=== PATIENT | male | born 1940 | race Caucasian/White ===

== ENCOUNTER 2018-06-24 22:41 | Emergency (ER) | payer MEDICARE ==
[~2018-06-24] VITALS: Ht 170.2 cm; Wt 80.0 kg
[~2018-06-24 22:41] MED LIST: ADV50250 IH; ATOR40TA PO; CARV3.12 PO; CEPH250T PO; COU5T PO; FURO-150 PO; POTA10TA19 PO; SPIIN INH
[2018-06-24] MEDS ORDERED: FURO-149 PO (23:03)
[2018-06-24] MEDS ORDERED: FURO-150 PO (23:03)
[2018-06-24] MEDS ORDERED: CITA20TA28 PO (23:04)
[2018-06-24] MEDS ORDERED: ASPI-1265 PO (23:04)
[2018-06-24 23:18] LABS: BASOPHILS % (AUTO) 0.5 % (0-1); EOSINOPHILS # (AUTO) 0.1 X10'3 (0-0.9); EOSINOPHILS % (AUTO) 0.9 % (0-6); LYMPHOCYTES # (AUTO) 1.4 X10'3 (1.1-4.8); LYMPHOCYTES % (AUTO) 16.4 % (21-51); MEAN CORPUSCULAR HEMOGLOBIN 31.1 PG (27.0-31.0); MEAN CORPUSCULAR HGB CONC 32.4 g/dL (33.0-36.5); MEAN CORPUSCULAR VOLUME 95.8 FL (78-98); MEAN PLATELET VOLUME 9.6 FL (7.4-10.4); MONOCYTES # (AUTO) 0.8 X10'3 (0-0.9); MONOCYTES % (AUTO) 9.2 % (2-12); NEUTROPHILS # (AUTO) 6.3 X10'3 (1.8-7.7); PLATELET COUNT 108 X10'3 (140-440); RED BLOOD COUNT 4.18 X10'6 (4.70-6.10); RED CELL DISTRIBUTION WIDTH 14.7 % (11.5-14.5); WHITE BLOOD COUNT 8.6 X10'3 (4.5-11.0)
--- NOTE | 2018-06-24 23:24 | NUR ---
PT ARRIVES ALS WITH C/O SOB SINCE 0800 TODAY. HAS BEEN TRYING TO MANAGE COPD EXAC AT HOME WITH INHALERS WITHOUT IMPROVMENT. PT ON 15L PER MASK WITH NEB TREATMENT IN PROCESS, TRIPODING, AND VERY DECREASED THROUGHOUT.
[2018-06-24 23:27] LABS: INR 1.1 INR; PARTIAL THROMBOPLASTIN TIME 31 SECONDS (22-32)
[2018-06-24 23:28] LABS: ALANINE AMINOTRANSFERASE 28 U/L (12-78); ALBUMIN 3.8 G/DL (3.4-5.0); ALKALINE PHOSPHATASE 114 IU/L (46-116); ANION GAP 5 (8-16); ASPARTATE AMINO TRANSFERASE 20 U/L (10-37); BILIRUBIN,TOTAL 0.8 MG/DL (0.1-1.0); BLOOD UREA NITROGEN 18 MG/DL (7-18); BUN/CREATININE RATIO 18.6 (5.4-32.0); CHLORIDE 99 MMOL/L (99-107); CREATININE 0.97 MG/DL (0.60-1.10); GLUCOSE 152 MG/DL (70-104); SODIUM 138 MMOL/L (135-145); TOTAL CARBON DIOXIDE 33.9 MMOL/L (24-32); TOTAL PROTEIN 7.8 G/DL (6.4-8.2); eGFR 75 ML/MIN
[2018-06-24] MEDS ORDERED: methylPREDNISolone sod succ 125mg/2ml vial IV ONE (23:30)
[2018-06-24] MEDS ORDERED: iohexol 350MG/ML 100ml bottle IV ONE (23:32)
[2018-06-24] MEDS ORDERED: ipratropium/albuterol 3ml nebule NEB ONE (23:35)
[2018-06-25 01:02] VITALS: BP 132/56
[2018-06-25] MEDS ORDERED: AZIT250T PO (01:40)
[2018-06-25] MEDS ORDERED: PRED10TA PO (01:40)
== END 2018-06-25 02:03 | disposition home or self-care (01) ==
LOC: ER 22:42
DX: J44.1 Chronic obstructive pulmonary disease with (acute) exacerbation (principal); M19.90 Unspecified osteoarthritis, unspecified site; Z98.890 Other specified postprocedural states; Z79.82 Long term (current) use of aspirin; Z79.899 Other long term (current) drug therapy
CPT/HCPCS: 36415; 71045; 71275; 80053; 84484; 85025; 85610; 85730; 93005; 94640; 94760; 96374; 99284; J2930; Q9967

== ENCOUNTER 2018-10-03 10:07 | Inpatient (IN) | payer MEDICARE ==
[~2018-10-03] VITALS: Ht 170.2 cm; Wt 80.0 kg
[~2018-10-03 10:07] MED LIST changes: +ASPI-1265 PO; -CARV3.12 PO; -CEPH250T PO; +CITA20TA28 PO; -COU5T PO; +FURO-149 PO; -POTA10TA19 PO; +PRED10TA PO
[2018-10-03 11:25] LABS: ABG HCO3 30.4 mmol/L (22.0-26.0); ABG OXYGEN SATURATION 97.4 % (95-98); ABG PCO2 (T) 53.3 mmHg (35.0-45.0); ABG PH (T) 7.374 (7.350-7.450); ABG PO2 (T) 103.3 mmHg (83-108); FLOW 4 L/min; FMetHb 0.1 % (0.3-1.12); FO2Hb 96.3 % (94-100); TOTAL HEMOGLOBIN 13.4 G/dl (14.0-17.9)
--- NOTE | 2018-10-03 11:52 | NUR ---
Hayley morales in [facility] - 10/03/18 at 1152 by KIRA PT STATES HE CANNOT URINATE AND REFUSED CATHETER
[2018-10-03 11:57] LABS: BASOPHILS % (AUTO) 0.5 % (0-1); EOSINOPHILS # (AUTO) 0.1 X10'3 (0-0.9); EOSINOPHILS % (AUTO) 1.9 % (0-6); HEMATOCRIT 39.7 % (42.0-52.0); HEMOGLOBIN 12.7 g/dl (14.0-17.9); LYMPHOCYTES # (AUTO) 1.1 X10'3 (1.1-4.8); LYMPHOCYTES % (AUTO) 17.2 % (21-51); MEAN CORPUSCULAR HEMOGLOBIN 30.2 PG (27.0-31.0); MEAN CORPUSCULAR VOLUME 94.4 FL (78-98); MEAN PLATELET VOLUME 9.5 FL (7.4-10.4); MONOCYTES # (AUTO) 0.5 X10'3 (0-0.9); NEUTROPHILS # (AUTO) 4.6 X10'3 (1.8-7.7); NEUTROPHILS % (AUTO) 72.4 % (42-75); PLATELET COUNT 102 X10'3 (140-440); RED CELL DISTRIBUTION WIDTH 14.9 % (11.5-14.5); WHITE BLOOD COUNT 6.4 X10'3 (4.5-11.0)
[2018-10-03 11:59] LABS: ALANINE AMINOTRANSFERASE 44 U/L (12-78); ALBUMIN 3.2 G/DL (3.4-5.0); ALBUMIN/GLOBULIN RATIO 0.8 (1.1-1.5); ALKALINE PHOSPHATASE 107 IU/L (46-116); ANION GAP 6 (8-16); ASPARTATE AMINO TRANSFERASE 21 U/L (10-37); BILIRUBIN,TOTAL 0.8 MG/DL (0.1-1.0); BLOOD UREA NITROGEN 18 MG/DL (7-18); BUN/CREATININE RATIO 18.4 (5.4-32.0); CALCIUM 8.7 MG/DL (8.5-10.1); CHLORIDE 105 MMOL/L (99-107); CREATININE 0.98 MG/DL (0.60-1.10); GLUCOSE 131 MG/DL (70-104); POTASSIUM 4.4 MMOL/L (3.5-5.1); SODIUM 142 MMOL/L (135-145); TOTAL CARBON DIOXIDE 30.9 MMOL/L (24-32); TOTAL PROTEIN 7.1 G/DL (6.4-8.2); eGFR 74 ML/MIN
[2018-10-03 12:02] LABS: TROPONIN I 0.05 NG/ML (0.0-0.05)
[2018-10-03] MEDS ORDERED: normal saline 1000ml 1,000 ML IV SCH (12:26)
[2018-10-03] MEDS ORDERED: potassium CL 10mEq/100ml bag 100 ML IV PRN ×2 (12:30)
[2018-10-03] MEDS ORDERED: magnesium Cl slow-release 64mg tablet PO PRN (12:30)
[2018-10-03] MEDS ORDERED: HYDROcodone/acetaminophen 10/325mg tab PO PRN (12:30)
[2018-10-03] MEDS ORDERED: magnesium 2GM in 50ml NS 50 ML IV PRN (12:30)
[2018-10-03] MEDS ORDERED: methylPREDNISolone sod succ 125mg/2ml vial IV ONE (12:30)
[2018-10-03] MEDS ORDERED: ondansetron/PF 4mg/2ml inj IV PRN (12:30)
[2018-10-03] MEDS ORDERED: acetaminophen 325mg tablet PO PRN ×2 (12:30)
[2018-10-03] MEDS ORDERED: potassium Cl 20 mEq SR tablet PO PRN ×2 (12:30)
[2018-10-03] MEDS ORDERED: bisacodyl 10mg suppository rectal RC PRN (12:30)
[2018-10-03] MEDS ORDERED: acetaminophen 650mg rectal suppository RC PRN (12:30)
[2018-10-03] MEDS ORDERED: magnesium 4gm in 100ml NS 100 ML IV PRN (12:30)
[2018-10-03] MEDS ORDERED: magnesium hydroxide 30ml (MOM) UD suspension PO PRN (12:30)
[2018-10-03] MEDS ORDERED: diphenhydrAMINE 25mg capsule PO PRN (12:30)
[2018-10-03] MEDS ORDERED: HYDROcodone/acetaminophen 5mg/325mg tablet PO PRN (12:30)
[2018-10-03] MEDS ORDERED: mag hydrox/Alum hydrox/simeth 30ml oral suspension PO PRN (12:30)
[2018-10-03] MEDS ORDERED: diphenhydrAMINE 50 mg/ml inj IV PRN (12:30)
[2018-10-03] MEDS: K and/or MAG REPLACEMENT MC SCH (12:30)
[2018-10-03] MEDS ORDERED: morphine 2 MG/ML inj. syringe IV PRN ×2 (12:30)
[2018-10-03] MEDS ORDERED: ATOR20TA PO (12:39)
[2018-10-03] MEDS ORDERED: FURO-150 PO (12:39)
[2018-10-03] MEDS ORDERED: POTA8CAP20 PO (12:40)
[2018-10-03] MEDS ORDERED: LORazepam 2 mg/ml vial IV ONE (13:00)
[2018-10-03 13:26] LABS: HEMOGLOBIN A1C 5.9 % (4.5-6.2)
--- NOTE | 2018-10-03 14:18 | NUR ---
Patient in room PCU 3016. I have received report from Octavio RN, ED, and had the opportunity to ask questions and assume patient care.
[2018-10-03] MEDS: levoFLOXACIN-Levaquin 500mg/D5 100 ML IV SCH (14:31)
--- NOTE | 2018-10-03 14:54 | NUR ---
PAGER ID: [phone] MESSAGE: Re: Uche Kincaid, Room: 301. RT was unsure concerning bipap orders. Last ABG: PH 7.37, CO2 53.3, HCO3 30.4 and O2 103.3 -[facility] # [id number] Dr. Proctor paged concerning Pt's bipap orders. Unclear for RT
[2018-10-03 15:00] VITALS: BP 143/59
--- NOTE | 2018-10-03 15:00 | NUR ---
Pt arrived to unit. Pt oriented to room, call light and bed controls. Vitals stable.
[2018-10-03] MEDS: methylPREDNISolone sod succ 125mg/2ml vial IV SCH ×2 (15:12→20:11)
[2018-10-03] MEDS: ipratropium/albuterol 3ml nebule NEB SCH ×3 (16:42→23:00)
--- NOTE | 2018-10-03 18:08 | NUR ---
Patient in room PCU 3016. I have received report from sanjay MCMANUS and had the opportunity to ask questions and assume patient care.
--- NOTE | 2018-10-03 18:20 | NUR ---
pt refused lasix and heparin after hearing the benefits of the meds
--- NOTE | 2018-10-03 18:25 | NUR ---
Problems reprioritized. Patient report given, questions answered & plan of care reviewed with Suly MCMANUS.
[2018-10-03 19:00] VITALS: BP 107/44
--- NOTE | 2018-10-03 19:00 | NUR ---
pt repeated says he wanted to go home and said "you guys cant keep me here." His at bedside said the pt needs to stay at the hospital and need helps. She said that this is not his normal self
[2018-10-03] MEDS: budesonide 0.5mg/2ml UD nebule IH SCH (19:58)
[2018-10-03 20:00] VITALS: BP_SYST 134; BP_SYST 140; BP_SYST 150; BP_DIAS 34; BP_DIAS 54; BP_DIAS 55
[2018-10-03] MEDS: furosemide 40mg/4ml inj IV SCH (20:00)
[2018-10-03] MEDS: heparin, porcine 5000 units/ml vial SQ SCH (20:00)
[2018-10-03] MEDS ORDERED: non-formulary drug (Fluticasone/Salmeterol* (Advair 250-50 Diskus*) 1 PUFF) IH SCH (20:00)
[2018-10-03 20:19] LABS: CLARITY,URINE CLEAR (Clear); COLOR,URINE YELLOW (Yellow); GLUCOSE, URINE NEGATIVE (Neg); KETONES,URINE NEGATIVE (Neg); LEUKOCYTE ESTERASE ,URINE NEGATIVE (Neg); NITRITES, URINE NEGATIVE (Neg); OCCULT BLOOD,URINE NEGATIVE (Neg); PH,URINE 5.5 (4.8-8.0); PROTEIN,URINE TRACE mg/dl (Neg)
[2018-10-03 20:22] LABS: UA COLLECTION TYPE CLN CATCH MIDSTREAM
[2018-10-03 20:35] LABS: MUCUS STRANDS MANY /LPF (Neg); SQUAMOUS EPITHELIAL CELL,UR FEW /LPF (FEW)
[2018-10-03 20:37] LABS: HYALINE CASTS 0-3 /LPF (NEGATIVE)
[2018-10-03 20:39] LABS: BACTERIA,URINE FEW /HPF (Neg); RBC,URINE 0-2 /HPF (0-2); WBC,URINE 0-4 /HPF (0-4)
[2018-10-03] MEDS ORDERED: temazepam 15mg capsule PO PRN (21:00)
--- NOTE | 2018-10-03 21:45 | NUR ---
pt took out IV and refused to have another IV placing even after explaining that he wont be able get his IV medication for his breathing
[2018-10-03 22:00] VITALS: BP 140/34
--- NOTE | 2018-10-03 22:27 | NUR ---
contacted Dr. Chaudhry about pt IV, got an order of PO meds prednisone and zyprexa
[2018-10-03] MEDS ORDERED: OLANZapine 2.5MG tablet PO ONE (22:30)
[2018-10-03] MEDS ORDERED: OLANZAPINE 5 MG TABLET PO ONE (22:55)
--- NOTE | 2018-10-04 02:00 | NUR ---
after multiple unsuccessful attemtps to get pt temperature, pt refused to let the staff get his temperature, and he said " I have enough of this, I want to sleep."
[2018-10-04 03:00] VITALS: BP 141/52
[2018-10-04] MEDS: ipratropium/albuterol 3ml nebule NEB SCH ×2 (03:00→07:00)
--- NOTE | 2018-10-04 04:18 | NUR ---
Pt refused to take Zyprexa even when it explained the benefit of medication. Will leave the order in EMAR if pt wants to have it later
[2018-10-04 05:22] LABS: MEAN CORPUSCULAR VOLUME 94.6 FL (78-98); WHITE BLOOD COUNT 4.2 X10'3 (4.5-11.0)
[2018-10-04 05:24] LABS: BASOPHILS % (AUTO) 0.3 % (0-1); EOSINOPHILS % (AUTO) 0.1 % (0-6); HEMATOCRIT 39.1 % (42.0-52.0); HEMOGLOBIN 12.7 g/dl (14.0-17.9); LYMPHOCYTES # (AUTO) 0.4 X10'3 (1.1-4.8); LYMPHOCYTES % (AUTO) 8.3 % (21-51); MEAN CORPUSCULAR HEMOGLOBIN 30.6 PG (27.0-31.0); MEAN CORPUSCULAR HGB CONC 32.4 g/dL (33.0-36.5); MEAN PLATELET VOLUME 9.3 FL (7.4-10.4); MONOCYTES # (AUTO) 0.1 X10'3 (0-0.9); MONOCYTES % (AUTO) 2.6 % (2-12); NEUTROPHILS # (AUTO) 3.8 X10'3 (1.8-7.7); NEUTROPHILS % (AUTO) 88.7 % (42-75); PLATELET COUNT 88 X10'3 (140-440); RED BLOOD COUNT 4.14 X10'6 (4.70-6.10); RED CELL DISTRIBUTION WIDTH 14.9 % (11.5-14.5)
[2018-10-04 05:36] LABS: ALANINE AMINOTRANSFERASE 38 U/L (12-78); ALBUMIN 2.9 G/DL (3.4-5.0); ALBUMIN/GLOBULIN RATIO 0.7 (1.1-1.5); ALKALINE PHOSPHATASE 92 IU/L (46-116); ANION GAP 3 (8-16); ASPARTATE AMINO TRANSFERASE 23 U/L (10-37); BILIRUBIN,TOTAL 0.7 MG/DL (0.1-1.0); BLOOD UREA NITROGEN 16 MG/DL (7-18); BUN/CREATININE RATIO 17.4 (5.4-32.0); CALCIUM 8.5 MG/DL (8.5-10.1); CHLORIDE 105 MMOL/L (99-107); CHOL/HDL RATIO 3.7 (0.00-4.99); CHOLESTEROL 158 MG/DL (0-200); CREATININE 0.92 MG/DL (0.60-1.10); GLUCOSE 145 MG/DL (70-104); HDL CHOLESTEROL 43 MG/DL (35-60); LDL CHOLESTEROL 101 MG/DL (50-100); MAGNESIUM 2.1 MG/DL (1.5-2.4); PHOSPHORUS 3.6 MG/DL (2.3-4.5); POTASSIUM 5.4 MMOL/L (3.5-5.1); SODIUM 141 MMOL/L (135-145); TOTAL CARBON DIOXIDE 32.7 MMOL/L (24-32); TOTAL PROTEIN 6.8 G/DL (6.4-8.2); TRIGLYCERIDES 38 MG/DL (20-135); eGFR 80 ML/MIN
[2018-10-04 06:00] VITALS: BP 122/46
--- NOTE | 2018-10-04 06:10 | NUR ---
Patient in room PCU 3016. I have received report from Suly MCMANUS and had the opportunity to ask questions and assume patient care.
--- NOTE | 2018-10-04 06:10 | NUR ---
Patient in room PCU 3016. I have received report from Suly MCMANUS and had the opportunity to ask questions and assume patient care.
--- NOTE | 2018-10-04 06:12 | NUR ---
Problems reprioritized. Patient report given, questions answered & plan of care reviewed with Sudarshan MCMANUS.
[2018-10-04] MEDS ORDERED: albuterol 2.5 MG/3 ML nebule NEB SCH (07:00)
[2018-10-04] MEDS ORDERED: ipratropium 0.5 MG/2.5ML nebule IH SCH (07:00)
--- NOTE | 2018-10-04 07:00 | NUR ---
Pt removed tele-box and refuses to have it reattached, stating that he "does not want it", even after explaining the benefits of telemetry monitoring. Talked with Pt about starting a new IV and he refused multiple times saying he doesn't need it. explained to Pt the benafit of having an IV, plus he has IV ABX and lasix due but still he refuses it. Pt refused Nasal Canula this morning but after explaining benefits he put NC back on, 3L.
[2018-10-04] MEDS: furosemide 40mg/4ml inj IV SCH (08:00)
[2018-10-04] MEDS ORDERED: citalopram 20mg tablet PO SCH (08:00)
[2018-10-04] MEDS ORDERED: aspirin 81mg tab.chew PO SCH (08:00)
[2018-10-04] MEDS: K and/or MAG REPLACEMENT MC SCH (08:00)
[2018-10-04] MEDS ORDERED: atorvastatin 20mg tablet PO SCH (08:00)
[2018-10-04] MEDS: heparin, porcine 5000 units/ml vial SQ SCH (08:00)
[2018-10-04] MEDS: levoFLOXACIN-Levaquin 500mg/D5 100 ML IV SCH (08:00)
[2018-10-04] MEDS ORDERED: non-formulary drug (Tiotropium Bromide (SPIRIVA inhaler) 1 CAP) INH SCH (08:00)
[2018-10-04] MEDS ORDERED: predniSONE 20 mg tablet PO SCH (08:00)
--- NOTE | 2018-10-04 08:37 | NUR ---
PAGER ID: [phone] MESSAGE: RE: Uche Kincaid. Room: 301. Pt removed IV last night and refuses to have new one started. Pt refuses to wear Tele box. Pt refusing all morning meds. Pt also has morning potassium of 5.4. -[facility] #[id number] Dr. Esthela fairwekirsten concerning Pt's non-compliance and morning potassium of 5.4
[2018-10-04] MEDS: budesonide 0.5mg/2ml UD nebule IH SCH (09:00)
[2018-10-04] MEDS ORDERED: pneumococcal 23-VAL P-sac vacc 25 mcg/0.5ml vial IMVAC ONE (09:00)
--- NOTE | 2018-10-04 09:00 | NUR ---
I agree with all of Fabiola MCMANUS, orientee, charting
--- NOTE | 2018-10-04 09:12 | NUR ---
PAGER ID: [phone] MESSAGE: [id number]: Uche Kincaid: Pt has arrived and will be leaving AMA, noncompliant with care and beginning to become agitated, refused Scheduled medication x2 attempts, Pt removed IV and tele monitor. Thanks Fabiola [phone]
--- NOTE | 2018-10-04 09:23 | NUR ---
Patient is noncompliant with care and is becoming agitated stating he does not need to be here, Pt is alert and oriented. Patient has left AMA @ 0920 aware of consequences and signed AMA form, Dr. Proctor was notified and aware, pt was wheeled down to lobby with hospital staff and transported home with in private vehicle. all belongings taken with pt. Addendum: 10/04/18 at 0944 by Fabiola Soliman RN Patient is noncompliant with care and is becoming agitated stating he does not need to be here, Pt is alert and oriented. Patient has left AMA @ 0920 aware of consequences and signed AMA form, Dr. Proctor was notified and aware, pt was wheeled down to lobby with hospital staff wearing NC with 2.5L Oxygen, vital signs stable, and transported home with in private vehicle with pt own oxygen tank. all belongings taken with pt.
== END 2018-10-04 09:20 | disposition left against medical advice (07) | DRG 193 ==
LOC: ER 10:08 → PCU 3S 14:02 → CMPBEDREQ 19:26
PROVIDERS: ADMIT Family Medicine; ATTEND Family Medicine
DX: J18.9 Pneumonia, unspecified organism (principal); J96.01 Acute respiratory failure with hypoxia; J44.1 Chronic obstructive pulmonary disease with (acute) exacerbation; E87.2 Acidosis; J44.0 Chronic obstructive pulmonary disease with (acute) lower respiratory infection; E78.5 Hyperlipidemia, unspecified; I11.0 Hypertensive heart disease with heart failure; D64.9 Anemia, unspecified; I48.91 Unspecified atrial fibrillation; Z53.21 Procedure and treatment not carried out due to patient leaving prior to being seen by health care provider; I50.9 Heart failure, unspecified; M19.90 Unspecified osteoarthritis, unspecified site; I49.5 Sick sinus syndrome; Z66 Do not resuscitate; Z82.49 Family history of ischemic heart disease and other diseases of the circulatory system; Z87.891 Personal history of nicotine dependence; Z91.19 Patient's noncompliance with other medical treatment and regimen; Z95.0 Presence of cardiac pacemaker; Z99.81 Dependence on supplemental oxygen
CPT/HCPCS: 36415; 36600; 71045; 80053; 80061; 81001; 82140; 82803; 82948; 83036; 83605; 83735; 84100; 84145; 84484; 85018; 85025; 85610; 87040; 87077; 87081; 90732; 93005; 93306; 94640; 94760; 96374; 99285; G0378; J1644; J1940; J1956; J2060; J2930; J7030; J7512

== ENCOUNTER 2018-10-08 10:46 | Emergency (ER) | payer MEDICARE ==
[~2018-10-08] VITALS: Ht 167.6 cm; Wt 81.8 kg
[~2018-10-08 10:46] MED LIST changes: +ATOR20TA PO; -ATOR40TA PO; -FURO-149 PO; +POTA8CAP20 PO; -PRED10TA PO
--- NOTE | 2018-10-08 11:51 | NUR ---
PT MOVED TO OVERFLOW BED 22 VIA W/C WITH O2. DR SUH WAS NOTIFIED OF PT'S O2 SAT OF 8-83% ON 4 LITERS VIA N/C. FAMILY MEMBERS HERE TO SEE PT
[2018-10-08 11:57] LABS: BASOPHILS # (AUTO) 0.1 X10'3 (0-0.2); BASOPHILS % (AUTO) 1.3 % (0-1); EOSINOPHILS # (AUTO) 0.1 X10'3 (0-0.9); EOSINOPHILS % (AUTO) 1.3 % (0-6); HEMATOCRIT 46.4 % (42.0-52.0); LYMPHOCYTES # (AUTO) 1.3 X10'3 (1.1-4.8); LYMPHOCYTES % (AUTO) 15.3 % (21-51); MEAN CORPUSCULAR HEMOGLOBIN 30.4 PG (27.0-31.0); MEAN CORPUSCULAR HGB CONC 32.4 g/dL (33.0-36.5); MEAN PLATELET VOLUME 9.3 FL (7.4-10.4); MONOCYTES # (AUTO) 0.5 X10'3 (0-0.9); MONOCYTES % (AUTO) 5.7 % (2-12); NEUTROPHILS # (AUTO) 6.4 X10'3 (1.8-7.7); NEUTROPHILS % (AUTO) 76.4 % (42-75); PLATELET COUNT 125 X10'3 (140-440); RED BLOOD COUNT 4.94 X10'6 (4.70-6.10); RED CELL DISTRIBUTION WIDTH 14.6 % (11.5-14.5); WHITE BLOOD COUNT 8.4 X10'3 (4.5-11.0)
[2018-10-08 12:01] LABS: ALANINE AMINOTRANSFERASE 47 U/L (12-78); ALBUMIN 3.8 G/DL (3.4-5.0); ALBUMIN/GLOBULIN RATIO 0.9 (1.1-1.5); ALKALINE PHOSPHATASE 121 IU/L (46-116); ANION GAP 10 (8-16); ASPARTATE AMINO TRANSFERASE 28 U/L (10-37); BILIRUBIN,TOTAL 1.5 MG/DL (0.1-1.0); BLOOD UREA NITROGEN 16 MG/DL (7-18); BUN/CREATININE RATIO 14.2 (5.4-32.0); CALCIUM 8.9 MG/DL (8.5-10.1); CHLORIDE 97 MMOL/L (99-107); CREATININE 1.13 MG/DL (0.60-1.10); GLUCOSE 162 MG/DL (70-104); SODIUM 140 MMOL/L (135-145); TOTAL CARBON DIOXIDE 33.5 MMOL/L (24-32); TOTAL PROTEIN 8.2 G/DL (6.4-8.2); eGFR 63 ML/MIN
[2018-10-08 12:10] LABS: ETHANOL < 0.010 GM/DL (0.0-0.010)
[2018-10-08 12:39] LABS: URINE AMPHETAMINE SCREEN NEGATIVE (Neg); URINE BARBITUATE SCREEN NEGATIVE (Neg); URINE BENZODIAZEPINES SCREEN NEGATIVE (Neg); URINE CANNABINOID SCREEN NEGATIVE (Neg); URINE COCAINE SCREEN NEGATIVE (Neg); URINE METHADONE SCREEN NEGATIVE (Neg); URINE OPIATE SCREEN NEGATIVE (Neg); URINE PHENCYCLIDINE SCREEN NEGATIVE (Neg)
[2018-10-08] MEDS ORDERED: haloperidol lactate 5mg/ml inj IM ONE (13:15)
[2018-10-08] MEDS ORDERED: diphenhydrAMINE 50 mg/ml inj IM ONE (13:15)
[2018-10-08] MEDS ORDERED: LORazepam 2 mg/ml vial IM ONE (13:15)
--- NOTE | 2018-10-08 14:00 | NUR ---
Notified Moni in [facility] of pts arrival and need to be evaluated by .
[2018-10-08 14:05] LABS: CLARITY,URINE CLEAR (Clear); COLOR,URINE YELLOW (Yellow); GLUCOSE, URINE NEGATIVE (Neg); KETONES,URINE NEGATIVE (Neg); LEUKOCYTE ESTERASE ,URINE TRACE (Neg); NITRITES, URINE NEGATIVE (Neg); OCCULT BLOOD,URINE NEGATIVE (Neg); PH,URINE 5.5 (4.8-8.0); PROTEIN,URINE NEGATIVE (Neg)
[2018-10-08 14:09] LABS: UA COLLECTION TYPE CLN CATCH MIDSTREAM
[2018-10-08 14:17] LABS: BACTERIA,URINE NONE SEEN /HPF (Neg); RBC,URINE 0-2 /HPF (0-2); SQUAMOUS EPITHELIAL CELL,UR FEW /LPF (FEW); WBC,URINE 0-4 /HPF (0-4)
[2018-10-08 14:18] LABS: MUCUS STRANDS FEW /LPF (Neg)
[2018-10-08 14:19] LABS: HYALINE CASTS 0-3 /LPF (NEGATIVE)
[2018-10-08] MEDS ORDERED: furosemide 40mg tablet PO ONE (14:45)
[2018-10-08] MEDS ORDERED: potassium chloride 8mEq ER tablet PO ONE (14:45)
[2018-10-08] MEDS ORDERED: atorvastatin 20mg tablet PO ONE (14:45)
[2018-10-08] MEDS ORDERED: aspirin 81mg tab.chew PO ONE (14:45)
[2018-10-08] MEDS ORDERED: citalopram 20mg tablet PO ONE (14:45)
[2018-10-08] MEDS: ipratropium/albuterol 3ml nebule NEB SCH ×2 (15:00→20:19)
[2018-10-08] MEDS ORDERED: albuterol 2.5 MG/3 ML nebule NEB SCH (15:00)
[2018-10-08] MEDS ORDERED: ipratropium 0.5 MG/2.5ML nebule IH SCH (15:00)
--- NOTE | 2018-10-08 16:00 | NUR ---
Pt sleeping. Family went back home.
--- NOTE | 2018-10-08 18:30 | NUR ---
Patient sleeping. Per day RN, patient was sedated. Plan to eval later when patient awakens.
--- NOTE | 2018-10-08 19:00 | NUR ---
Patient awoke. Ate dinner, immediately returned to sleep. Patients bed is in view from the nursing station. Q15 minute rounding being done for patient safety.
[2018-10-08] MEDS: budesonide 0.5mg/2ml UD nebule IH SCH (20:18)
--- NOTE | 2018-10-08 23:00 | NUR ---
Patient sleeping on right side. In view from nursing station.
--- NOTE | 2018-10-09 01:56 | NUR ---
Patient awakens, sits up at side of bed. Will not talk with this medical underwriter. He lays down and returns to sleep on his right side. O2 in place still, 2 LPM by N/C.
[2018-10-09] MEDS: ipratropium/albuterol 3ml nebule NEB SCH ×4 (03:00→20:19)
--- NOTE | 2018-10-09 07:00 | NUR ---
Pt sitting at bedside, quietly, without complaints. Pt states he's just waiting until 8 to make a phone call. Pt a little cantankerous, but loosens up when respected and treated nicely.
[2018-10-09] MEDS: budesonide 0.5mg/2ml UD nebule IH SCH ×2 (08:55→20:20)
--- NOTE | 2018-10-09 09:00 | NUR ---
Pt up for breakfast. Pt remains irritable because he wants to leave. Pt has called twice to pick him up. Pt reminded of 5150 process, but does not wish to agree. Pt currently lying in bed.
[2018-10-09] MEDS: atorvastatin 20mg tablet PO SCH (09:11)
[2018-10-09] MEDS: aspirin 81mg tab.chew PO SCH (09:11)
[2018-10-09] MEDS: citalopram 20mg tablet PO SCH (09:12)
[2018-10-09] MEDS: furosemide 40mg tablet PO SCH (09:13)
--- NOTE | 2018-10-09 11:00 | NUR ---
Pt upset r/t not being able to go home. Pt c/o SOB and respiratory was called. Pt O2 sat had gone to 81% for a few minutes, but with relaxation, he climbed again to 93% and after respiratory treatment, he stabilized. Pt was brought a suhail-recliner chair which he got in.
--- NOTE | 2018-10-09 13:00 | NUR ---
Pt visited with his and daughter in law. Pt remained calm and cooperative.
[2018-10-09] MEDS: OLANZapine 5mg rapidly disint. tablet PO PRN (14:50)
--- NOTE | 2018-10-09 15:01 | NUR ---
Pt received a breathing treatment after dipping to 84%. He c/o anxiety and asked for a shot. He was given zydis 5mg per MD order. After breathing treatment, pt was up to 100%.
--- NOTE | 2018-10-09 17:00 | NUR ---
Pt sitting in suhail chair, resting quietly without complaints.
--- NOTE | 2018-10-09 18:30 | NUR ---
Pt sitting up in Alice chair at shift change eating his dinner. PT finished majority of his meal and urinated in his urinal. Pt's water pitcher was filled. [employer] Remover asked pt how he was feeling this evening and pt replied, "fine." [employer] Remover asked if he was having any thoughts of suicide and he replied, "what? no!"
--- NOTE | 2018-10-09 22:02 | NUR ---
Pt refused his HS breathing treatment. PT remains on 4L continous 02 currently sat 97%. He uses his urinal and goes to sleep.
--- NOTE | 2018-10-09 23:30 | NUR ---
Pt resting on R side, 02 at 4L continuous. Respirations WNL, no signs of distress observed.
--- NOTE | 2018-10-10 01:00 | NUR ---
Pt requested a warm blanket which was given to him. Pt laying on L side respirations WNL .
[2018-10-10] MEDS: ipratropium/albuterol 3ml nebule NEB SCH ×6 (03:00→19:55)
--- NOTE | 2018-10-10 03:30 | NUR ---
Pt asleep on R side. Respirations WNL.
[2018-10-10] MEDS ORDERED: dexamethasone 4mg tablet PO ONE (04:25)
--- NOTE | 2018-10-10 04:27 | NUR ---
PT woke up and appeared to have labored breathing, 02 sat 86%, respiratory paged and breathing tx started. Physician consulted and decadron 12 mg PO and ativan 1mg ordered.
[2018-10-10] MEDS: LORazepam 1 MG tablet PO PRN ×3 (04:29→15:59)
--- NOTE | 2018-10-10 06:30 | NUR ---
Patient observed resting comfortably in bed, no distress observed.
[2018-10-10] MEDS: citalopram 20mg tablet PO SCH (08:02)
[2018-10-10] MEDS: atorvastatin 20mg tablet PO SCH (08:02)
[2018-10-10] MEDS: furosemide 40mg tablet PO SCH (08:03)
[2018-10-10] MEDS: aspirin 81mg tab.chew PO SCH (08:03)
[2018-10-10] MEDS: budesonide 0.5mg/2ml UD nebule IH SCH ×2 (09:00→19:55)
[2018-10-10] MEDS: potassium chloride 8mEq ER tablet PO SCH (09:05)
--- NOTE | 2018-10-10 10:30 | NUR ---
Patient resting comfortably, no apparent distress. and daughter came to visit, did not wake patient and will return later.
--- NOTE | 2018-10-10 11:00 | NUR ---
Patient wakes and reports that he is feeling anxious. PO Ativan 1mg administered.
[2018-10-10] MEDS: OLANZapine 5mg rapidly disint. tablet PO PRN (14:00)
--- NOTE | 2018-10-10 14:09 | NUR ---
Patient reports feeling anxious. He states that he is tired of feeling this way. He did not eat his lunch and asks this RN to take it away. He requests Ativan but it is too soon. RN administered Zyprexa as ordered.
--- NOTE | 2018-10-10 14:57 | NUR ---
PT SPO2 94% ON 4L/MIN OXYGEN HEART RATE 77 WHILE SLEEPING, PT WOKEN AND ASKED IF HE WANTED Q 6 HOUR RT TREATMENT AND PT REFUSED, DISCUSSED WITH PT HAVING PULMACORT RT TREATMENT TONIGHT AT 2100 AND PT AGREEABLE TO HAVE THAT RT TREATMENT TONIGHT
--- NOTE | 2018-10-10 18:36 | NUR ---
pt is now in bed after eating dinner, supine rcv 4L via n/c no s/s of distress observed
--- NOTE | 2018-10-10 19:35 | NUR ---
pt is supine in bed, magazine over his face, on 4L nc no s/s of distress obsereved, regular breathing present
--- NOTE | 2018-10-10 20:35 | NUR ---
pt refused breathing treatment, his 02 sat is 93% on 4L, calm no s/s of distress observed
--- NOTE | 2018-10-10 21:36 | NUR ---
pt apperas to be sleeping, supine in bed, eyes closed, regular brathing present
--- NOTE | 2018-10-10 22:40 | NUR ---
pt is quietly snoring, no s/s of distress observed
--- NOTE | 2018-10-10 23:33 | NUR ---
pt appears to be asleep he is on his right side, 4L n/c reqular breathing, no s/s of distress observed
--- NOTE | 2018-10-11 00:40 | NUR ---
pt appears to be asleep, he is laying on his right ride, quietly snoring, no s/s of distrss are observed
--- NOTE | 2018-10-11 01:32 | NUR ---
pt is sleeping, eyes closed, remains on 4L nc, no s/s of distress observed
--- NOTE | 2018-10-11 02:29 | NUR ---
Patient sleeping soundly on his right side with even unlabored breathing.
[2018-10-11] MEDS: ipratropium/albuterol 3ml nebule NEB SCH ×4 (03:00→20:38)
--- NOTE | 2018-10-11 03:11 | NUR ---
pt supine in bed softly snoring, no s/s of distress observed
--- NOTE | 2018-10-11 04:19 | NUR ---
pt is asllep, on 4l nc, supine, unlabored breathing
--- NOTE | 2018-10-11 05:25 | NUR ---
pt is on right side, sleeping, no s/s of distress observed, on 4L n/c regular breathing present
--- NOTE | 2018-10-11 06:00 | NUR ---
pt coopertive with having his vitals taken, remained asleep, no s/s of distress observed
--- NOTE | 2018-10-11 06:30 | NUR ---
Nursing Note: Pt laying in bed on his back, head of bed at 45 degree angle, on 4 L O2 via NC, respirations even and unlabored, no S&S of distress. Will continue to monitor.
--- NOTE | 2018-10-11 07:54 | NUR ---
Nursing Note: Pt refused AM RT treatment. No S&S of distress, pt on 4L O2, RR even and unlabored, no S&S of distress, will continue to monitor.
[2018-10-11] MEDS: aspirin 81mg tab.chew PO SCH (08:10)
[2018-10-11] MEDS: atorvastatin 20mg tablet PO SCH (08:10)
[2018-10-11] MEDS: citalopram 20mg tablet PO SCH (08:10)
[2018-10-11] MEDS: furosemide 40mg tablet PO SCH (08:10)
--- NOTE | 2018-10-11 08:25 | NUR ---
Nursing Note: Notified Dr. Medrano that pt's O2 sats were ranging in the upper 80's. Pt refused AM RT, this RN encouraged pt to take treatment and he continued to refuse. Awaiting further orders, will continue to monitor.
[2018-10-11] MEDS: budesonide 0.5mg/2ml UD nebule IH SCH ×2 (09:00→20:41)
--- NOTE | 2018-10-11 10:06 | NUR ---
relieving RN for break, pt is being evaluated by [facility] clinician, pt is calm and cooperative
--- NOTE | 2018-10-11 10:46 | NUR ---
Nursing Note: Pt sitting up in chair, staring ahead, RR even and unlabored, no S&S of distress, will continue to monitor.
--- NOTE | 2018-10-11 12:53 | NUR ---
Nursing Note: Pt sitting up in chair, eyes open. RR even, no S&S of distress. Pt currently on 4L O2 via NC. At this time, he refueses his respiratory treatment. Will continue to monitor.
--- NOTE | 2018-10-11 13:59 | NUR ---
sent page for social sciences chair for assistance placing pt due to O@ dependance.
--- NOTE | 2018-10-11 14:23 | NUR ---
Nursing Note: Spoke with Marya, Accounting Coordinator. She is looking at his case, but he will need to be cleared by mental health before she can do anything. Will continue to monitor.
--- NOTE | 2018-10-11 16:40 | NUR ---
Nursing Note: Pt's currently at pt's bedside visiting with pt. Pt appears calm. No S&S of distress. Pt has 4L O2 via nasal canula. Will continue to monitor.
--- NOTE | 2018-10-11 17:38 | NUR ---
Nursing Note: FRANCIE Villatoro currently at pt's bedside along with pt's .
--- NOTE | 2018-10-11 19:26 | NUR ---
pt sitting in bedside chair with 4L of o2 via NC, pt states he feels fine. Breaths are even and unlabored, strong radial pulses.
[2018-10-11] MEDS: OLANZapine 5mg rapidly disint. tablet PO PRN (21:14)
--- NOTE | 2018-10-11 22:00 | NUR ---
pt resting on 4L of O2 via NC in no apparent distress, breaths even and unlabored
--- NOTE | 2018-10-11 22:57 | NUR ---
PT WAS SITTINGIN BEDSIDE CHAIR READING HIS BOOK, JUST WENT BACK TO BED, ON 4L OF o2 VIA NC IN NO APPARENT DISTRESS, BREATHS EVEN AND UNLABORED
--- NOTE | 2018-10-11 23:54 | NUR ---
pt is resting on 4L of O2 via NC in no apparent distress, breaths even and unlabored
--- NOTE | 2018-10-12 01:50 | NUR ---
pt laying on back, breaths even and unlabored, in no apparent distress, pt wearing 4L of O2 via NC
[2018-10-12] MEDS: ipratropium/albuterol 3ml nebule NEB SCH ×2 (03:00→08:15)
--- NOTE | 2018-10-12 03:52 | NUR ---
pt resting on 4L of O2 via NC in no apparent distress, breaths even and unlabored
[2018-10-12 05:39] VITALS: BP 128/56
[2018-10-12] MEDS: potassium chloride 8mEq ER tablet PO SCH (08:14)
[2018-10-12] MEDS: aspirin 81mg tab.chew PO SCH (08:14)
[2018-10-12] MEDS: atorvastatin 20mg tablet PO SCH (08:14)
[2018-10-12] MEDS: budesonide 0.5mg/2ml UD nebule IH SCH (08:15)
[2018-10-12] MEDS: citalopram 20mg tablet PO SCH (08:15)
[2018-10-12] MEDS: furosemide 40mg tablet PO SCH (08:15)
--- NOTE | 2018-10-12 08:25 | NUR ---
PT SITTING UP IN CHAIR EATING BREAKFAST. MORNING MEDS GIVE. NO NEEDS AT THIS TIME
--- NOTE | 2018-10-12 09:56 | NUR ---
dISCHARGE INSTRUCTIONS REVIEWED WITH PT AND . VERBALIZES UNDERSTANDING. PT RELEASED FROM 5150 BY [facility] THIS MORNING. BELONGINGS GIVEN TO PT. PT IS CHANGING AND THEN WILL BE W/C TO [facility]. Addendum: 10/12/18 at 0958 by [email or web address] AWAITING RIDE
== END 2018-10-12 10:05 | disposition home or self-care (01) ==
LOC: ER 10:46
DX: F29 Unspecified psychosis not due to a substance or known physiological condition (principal); F22 Delusional disorders; J44.9 Chronic obstructive pulmonary disease, unspecified; M19.90 Unspecified osteoarthritis, unspecified site; F32.9 Major depressive disorder, single episode, unspecified; Z98.890 Other specified postprocedural states; Z79.82 Long term (current) use of aspirin; Z79.899 Other long term (current) drug therapy
CPT/HCPCS: 36415; 80053; 80305; 80320; 81001; 84443; 85025; 94640; 94760; 99285; J1200; J1630; J2060; J8540

== ENCOUNTER 2019-08-03 09:19 | Inpatient (IN) | payer MEDICARE ==
[~2019-08-03] VITALS: Ht 170.2 cm; Wt 79.3 kg
[2019-08-03 09:35] LABS: ABG BASE EXCESS 11.7 mmol/L (-2.0-3.0); ABG HCO3 39.2 mmol/L (22.0-26.0); ABG OXYGEN SATURATION 98.9 % (95-98); ABG PCO2 (T) 64.3 mmHg (35.0-45.0); ABG PO2 (T) 153.5 mmHg (83-108); ALLEN'S TEST POSITIVE; FCOHb 0.8 % (0.5-1.5); FMetHb 0.1 % (0.3-1.12); RESPIRATORY RATE 16 b/min; TIDAL VOLUME 914 mL; TOTAL HEMOGLOBIN 13.9 G/dl (14.0-17.9)
[2019-08-03] MEDS ORDERED: ipratropium/albuterol 3ml nebule NEB ONE (09:35)
[2019-08-03] MEDS ORDERED: methylPREDNISolone sod succ 125mg/2ml vial IV ONE (09:35)
[2019-08-03] MEDS ORDERED: furosemide 40mg/4ml inj IV ONE (09:35)
[2019-08-03 09:56] LABS: BASOPHILS % (AUTO) 0.5 % (0-1); EOSINOPHILS # (AUTO) 0.1 X10'3 (0-0.9); EOSINOPHILS % (AUTO) 1.2 % (0-6); HEMOGLOBIN 13.7 g/dl (14.0-17.9); LYMPHOCYTES # (AUTO) 1.3 X10'3 (1.1-4.8); LYMPHOCYTES % (AUTO) 18.4 % (21-51); MEAN CORPUSCULAR HEMOGLOBIN 31.6 PG (27.0-31.0); MEAN CORPUSCULAR HGB CONC 31.9 g/dL (33.0-36.5); MEAN CORPUSCULAR VOLUME 99.1 FL (78-98); MEAN PLATELET VOLUME 10.1 FL (7.4-10.4); MONOCYTES # (AUTO) 0.6 X10'3 (0-0.9); MONOCYTES % (AUTO) 8.7 % (2-12); NEUTROPHILS # (AUTO) 5.1 X10'3 (1.8-7.7); NEUTROPHILS % (AUTO) 71.2 % (42-75); PLATELET COUNT 102 X10'3 (140-440); RED BLOOD COUNT 4.34 X10'6 (4.70-6.10); RED CELL DISTRIBUTION WIDTH 14.9 % (11.5-14.5); WHITE BLOOD COUNT 7.2 X10'3 (4.5-11.0)
[2019-08-03 10:04] LABS: PARTIAL THROMBOPLASTIN TIME 30 SECONDS (22-32)
[2019-08-03 10:15] LABS: ALANINE AMINOTRANSFERASE 23 U/L (12-78); ALBUMIN 3.4 G/DL (3.4-5.0); ALBUMIN/GLOBULIN RATIO 0.7 (1.1-1.5); ALKALINE PHOSPHATASE 124 IU/L (46-116); ANION GAP 1 (8-16); ASPARTATE AMINO TRANSFERASE 34 U/L (10-37); BILIRUBIN,TOTAL 1.5 MG/DL (0.1-1.0); BLOOD UREA NITROGEN 11 MG/DL (7-18); CHLORIDE 99 MMOL/L (99-107); CREATININE 0.92 MG/DL (0.60-1.10); GLUCOSE 112 MG/DL (70-104); POTASSIUM 3.7 MMOL/L (3.5-5.1); SODIUM 142 MMOL/L (135-145); eGFR 80 ML/MIN
[2019-08-03 10:19] LABS: TOTAL CARBON DIOXIDE 41.9 MMOL/L (24-32)
[2019-08-03] MEDS ORDERED: ESZO3TAB40 PO (10:28)
[2019-08-03] MEDS ORDERED: QUET25TA PO (10:28)
[2019-08-03] MEDS ORDERED: POTA10TA19 PO (10:30)
--- NOTE | 2019-08-03 10:32 | NUR ---
PT SLEEPING IN NO DISTRESS.
[2019-08-03] MEDS ORDERED: azithromycin/NS 500mg/250ml 250 ML IV ONE (11:05)
[2019-08-03] MEDS ORDERED: CefTRIAXone/D5W-Rocephin 1gm 50 ML IV ONE (11:05)
[2019-08-03] MEDS ORDERED: FLUT1DIS20 INH (11:23)
--- NOTE | 2019-08-03 11:32 | NUR ---
COVID SWAB COMPLETED AND SENT TO LAB CALLED PHARMACY FOR ABX, STATED WILL BE READY IN A MIN. JORDAN SENT TO [facility].
--- NOTE | 2019-08-03 11:33 | NUR ---
PT PLACED IN ISOLATION UNTIL COVID RESULTS ARE COMPLETED.
[2019-08-03] MEDS ORDERED: bisacodyl 10mg suppository rectal RC PRN (13:35)
[2019-08-03] MEDS ORDERED: acetaminophen 325mg tablet PO PRN ×2 (13:35)
[2019-08-03] MEDS ORDERED: magnesium 4gm in 100ml NS 100 ML IV PRN (13:35)
[2019-08-03] MEDS ORDERED: magnesium hydroxide 30ml (MOM) UD suspension PO PRN (13:35)
[2019-08-03] MEDS ORDERED: HYDROcodone/acetaminophen 5mg/325mg tablet PO PRN (13:35)
[2019-08-03] MEDS ORDERED: HYDROcodone/acetaminophen 10/325mg tab PO PRN (13:35)
[2019-08-03] MEDS ORDERED: morphine 2 MG/ML inj. syringe IV PRN ×2 (13:35)
[2019-08-03] MEDS ORDERED: acetaminophen 650mg rectal suppository RC PRN (13:35)
[2019-08-03] MEDS ORDERED: ipratropium/albuterol 3ml nebule NEB PRN (13:35)
[2019-08-03] MEDS ORDERED: ondansetron/PF 4mg/2ml inj IV PRN (13:35)
[2019-08-03] MEDS ORDERED: potassium Cl 20 mEq SR tablet PO PRN ×2 (13:35)
[2019-08-03] MEDS ORDERED: diphenhydrAMINE 25mg capsule PO PRN (13:35)
[2019-08-03] MEDS ORDERED: magnesium Cl slow-release 64mg tablet PO PRN (13:35)
[2019-08-03] MEDS ORDERED: potassium CL 10mEq/100ml bag 100 ML IV PRN ×2 (13:35)
[2019-08-03] MEDS ORDERED: magnesium 2GM in 50ml NS 50 ML IV PRN (13:35)
[2019-08-03] MEDS ORDERED: mag hydrox/Alum hydrox/simeth 30ml oral suspension PO PRN (13:35)
[2019-08-03] MEDS ORDERED: albuterol 2.5 MG/3 ML nebule NEB SCH (14:00)
--- NOTE | 2019-08-03 14:14 | NUR ---
PT IS DOING MUCH BETTER AND RT IS TAKING PT OFF OF CPAP TO SEE HOW IS DOING. PT IS HAPPY ABOUT THIS. ORDER FROM [facility] WAS FOR O2 PER NASAL CANNULA
[2019-08-03 14:23] LABS: CLARITY,URINE CLEAR (Clear); COLOR,URINE YELLOW (Yellow); GLUCOSE, URINE NEGATIVE (Neg); KETONES,URINE NEGATIVE (Neg); LEUKOCYTE ESTERASE ,URINE NEGATIVE (Neg); NITRITES, URINE NEGATIVE (Neg); OCCULT BLOOD,URINE NEGATIVE (Neg); PROTEIN,URINE NEGATIVE (Neg)
[2019-08-03 14:24] LABS: UA COLLECTION TYPE URINAL
[2019-08-03] MEDS: normal saline 1000ml 1,000 ML IV SCH (14:53)
[2019-08-03] MEDS: methylPREDNISolone sod succ 125mg/2ml vial IV SCH ×2 (14:53→21:06)
[2019-08-03 15:16] LABS: ABG BASE EXCESS 7.2 mmol/L (-2.0-3.0); ABG HCO3 34.4 mmol/L (22.0-26.0); ABG OXYGEN SATURATION 90.5 % (95-98); ABG PCO2 (T) 58.3 mmHg (35.0-45.0); ABG PO2 (T) 59.2 mmHg (83-108); FCOHb 0.7 % (0.5-1.5); FLOW 5 L/min; FMetHb 0.1 % (0.3-1.12); FO2Hb 89.8 % (94-100); PATIENT TEMPERATURE 36.5; TOTAL HEMOGLOBIN 14.1 G/dl (14.0-17.9)
[2019-08-03] MEDS: ipratropium/albuterol 3ml nebule IH SCH ×2 (15:21→20:00)
[2019-08-03] MEDS: ipratropium/albuterol 3ml nebule NEB SCH ×3 (15:22→23:00)
--- NOTE | 2019-08-03 15:37 | NUR ---
Received from ER, report from Toya. Pt on 2.5 L NC, but appears cyanotic, increased work of breathing, O2 sats 81%. Increased O2 to 5L. Spoke with Dr Proctor to notify him. He ordered ABG's and bipap. Pt oriented to room, unit, and plan of care. He now continues with O2 sats 95%. Dr Proctor now in room. Pt refusing bipap. However it is in the room if we need it. Dr Proctor stated to have it at bedside in case we need it.
[2019-08-03 15:38] LABS: HEMOGLOBIN A1C 5.8 % (4.5-6.2)
[2019-08-03 18:00] VITALS: BP 127/57
--- NOTE | 2019-08-03 18:00 | NUR ---
Patient in room PCU 3024. I have received report from Clementina MCMANUS and had the opportunity to ask questions and assume patient care.
--- NOTE | 2019-08-03 19:01 | NUR ---
Problems reprioritized. Patient report given, questions answered & plan of care reviewed with Nadia.
[2019-08-03] MEDS: K and/or MAG REPLACEMENT MC SCH (20:00)
[2019-08-03] MEDS: heparin, porcine 5000 units/ml vial SQ SCH (20:00)
[2019-08-03] MEDS: budesonide 0.5mg/2ml UD nebule IH SCH (20:00)
[2019-08-03] MEDS: zolpidem 5mg tablet PO SCH (21:07)
[2019-08-03 22:00] VITALS: BP 142/72
[2019-08-04 02:00] VITALS: BP 143/20
[2019-08-04] MEDS: methylPREDNISolone sod succ 125mg/2ml vial IV SCH ×4 (02:00→19:28)
[2019-08-04] MEDS: ipratropium/albuterol 3ml nebule IH SCH ×4 (02:00→20:00)
[2019-08-04] MEDS: ipratropium/albuterol 3ml nebule NEB SCH ×5 (03:00→23:00)
[2019-08-04 06:00] VITALS: BP 162/81
[2019-08-04 06:21] LABS: BASOPHILS % (AUTO) 0.2 % (0-1); EOSINOPHILS % (AUTO) 0 % (0-6); HEMATOCRIT 38.4 % (42.0-52.0); HEMOGLOBIN 12.5 g/dl (14.0-17.9); LYMPHOCYTES # (AUTO) 0.5 X10'3 (1.1-4.8); LYMPHOCYTES % (AUTO) 11.2 % (21-51); MEAN CORPUSCULAR HGB CONC 32.5 g/dL (33.0-36.5); MEAN CORPUSCULAR VOLUME 98.5 FL (78-98); MEAN PLATELET VOLUME 10.1 FL (7.4-10.4); MONOCYTES # (AUTO) 0.1 X10'3 (0-0.9); MONOCYTES % (AUTO) 3.3 % (2-12); NEUTROPHILS # (AUTO) 3.9 X10'3 (1.8-7.7); NEUTROPHILS % (AUTO) 85.3 % (42-75); PLATELET COUNT 84 X10'3 (140-440); RED CELL DISTRIBUTION WIDTH 14.7 % (11.5-14.5); WHITE BLOOD COUNT 4.5 X10'3 (4.5-11.0)
[2019-08-04 06:36] LABS: ALANINE AMINOTRANSFERASE 24 U/L (12-78); ALBUMIN 2.9 G/DL (3.4-5.0); ALBUMIN/GLOBULIN RATIO 0.7 (1.1-1.5); ALKALINE PHOSPHATASE 97 IU/L (46-116); ANION GAP 4 (8-16); ASPARTATE AMINO TRANSFERASE 26 U/L (10-37); BILIRUBIN,TOTAL 1.1 MG/DL (0.1-1.0); BLOOD UREA NITROGEN 15 MG/DL (7-18); BUN/CREATININE RATIO 18.1 (5.4-32.0); CALCIUM 8.9 MG/DL (8.5-10.1); CHLORIDE 100 MMOL/L (99-107); CHOL/HDL RATIO 3.2 (0.00-4.99); CHOLESTEROL 157 MG/DL (0-200); CREATININE 0.83 MG/DL (0.60-1.10); GLUCOSE 138 MG/DL (70-104); HDL CHOLESTEROL 49 MG/DL (35-60); LDL CHOLESTEROL 90 MG/DL (50-100); PHOSPHORUS 3.8 MG/DL (2.3-4.5); POTASSIUM 4.1 MMOL/L (3.5-5.1); SODIUM 141 MMOL/L (135-145); TRIGLYCERIDES 49 MG/DL (20-135); eGFR 90 ML/MIN
--- NOTE | 2019-08-04 06:44 | NUR ---
Patient in room PCU 3024. I have received report from Nadia MCMANUS and had the opportunity to ask questions and assume patient care
--- NOTE | 2019-08-04 06:51 | NUR ---
Problems reprioritized. Patient report given, questions answered & plan of care reviewed with EMERSON MCMANUS.
[2019-08-04] MEDS: K and/or MAG REPLACEMENT MC SCH ×2 (06:56→20:00)
[2019-08-04] MEDS: heparin, porcine 5000 units/ml vial SQ SCH ×2 (08:00→20:00)
[2019-08-04] MEDS: budesonide 0.5mg/2ml UD nebule IH SCH ×2 (08:00→20:00)
[2019-08-04] MEDS: CefTRIAXone/D5W-Rocephin 1gm 50 ML IV SCH (08:37)
[2019-08-04] MEDS: furosemide 40mg tablet PO SCH (08:39)
[2019-08-04] MEDS: citalopram 20mg tablet PO SCH (08:39)
[2019-08-04] MEDS: QUEtiapine 25mg tablet PO SCH (08:39)
[2019-08-04] MEDS: normal saline 1000ml 1,000 ML IV SCH (08:40)
[2019-08-04] MEDS: azithromycin 250mg tablet PO SCH (08:40)
--- NOTE | 2019-08-04 09:10 | NUR ---
SubQ heparin dose is held for a platelet count of 84. MD to be notified.
--- NOTE | 2019-08-04 09:18 | NUR ---
PAGER ID: [phone] MESSAGE: [phone] Kavon Sandoval: Platelet count of 84 holding SQ heparin, requesting your clinic judgement on heparin dose. Thank You Sekou MARTINEZ RN [phone]
[2019-08-04 11:00] VITALS: BP 119/58
--- NOTE | 2019-08-04 14:52 | NUR ---
patient refused svn tx Addendum: 08/04/19 at 1453 by Lea Kim RT Amended: Links added.
[2019-08-04 15:00] VITALS: BP 144/72
[2019-08-04 18:00] VITALS: BP 119/79
--- NOTE | 2019-08-04 18:39 | NUR ---
Patient in room PCU 3024. I have received report from Beba MCMANUS and had the opportunity to ask questions and assume patient care.
[2019-08-04] MEDS: zolpidem 5mg tablet PO SCH (21:16)
[2019-08-04 22:00] VITALS: BP 135/58
[2019-08-05] VITALS (8 sets, daily range): BP systolic 124–153; BP diastolic 52–87
[2019-08-05] MEDS: methylPREDNISolone sod succ 125mg/2ml vial IV SCH ×4 (01:27→20:23)
[2019-08-05] MEDS: ipratropium/albuterol 3ml nebule IH SCH (02:00)
[2019-08-05] MEDS: ipratropium/albuterol 3ml nebule NEB SCH ×6 (03:00→23:35)
[2019-08-05 05:34] LABS: BASOPHILS % (AUTO) 0.1 % (0-1); EOSINOPHILS % (AUTO) 0 % (0-6); HEMATOCRIT 38.8 % (42.0-52.0); HEMOGLOBIN 12.6 g/dl (14.0-17.9); LYMPHOCYTES # (AUTO) 0.5 X10'3 (1.1-4.8); LYMPHOCYTES % (AUTO) 7.5 % (21-51); MEAN CORPUSCULAR HEMOGLOBIN 31.7 PG (27.0-31.0); MEAN CORPUSCULAR HGB CONC 32.5 g/dL (33.0-36.5); MEAN CORPUSCULAR VOLUME 97.6 FL (78-98); MEAN PLATELET VOLUME 10.3 FL (7.4-10.4); MONOCYTES # (AUTO) 0.2 X10'3 (0-0.9); MONOCYTES % (AUTO) 3.6 % (2-12); NEUTROPHILS # (AUTO) 5.9 X10'3 (1.8-7.7); NEUTROPHILS % (AUTO) 88.8 % (42-75); PLATELET COUNT 83 X10'3 (140-440); RED BLOOD COUNT 3.98 X10'6 (4.70-6.10); WHITE BLOOD COUNT 6.7 X10'3 (4.5-11.0)
[2019-08-05 05:44] LABS: ALANINE AMINOTRANSFERASE 22 U/L (12-78); ALBUMIN 2.9 G/DL (3.4-5.0); ALBUMIN/GLOBULIN RATIO 0.7 (1.1-1.5); ALKALINE PHOSPHATASE 90 IU/L (46-116); ANION GAP 1 (8-16); ASPARTATE AMINO TRANSFERASE 28 U/L (10-37); BLOOD UREA NITROGEN 19 MG/DL (7-18); BUN/CREATININE RATIO 24.1 (5.4-32.0); CALCIUM 8.6 MG/DL (8.5-10.1); CHLORIDE 102 MMOL/L (99-107); CREATININE 0.79 MG/DL (0.60-1.10); GLUCOSE 133 MG/DL (70-104); PHOSPHORUS 4.2 MG/DL (2.3-4.5); POTASSIUM 4.1 MMOL/L (3.5-5.1); SODIUM 141 MMOL/L (135-145); TOTAL CARBON DIOXIDE 37.8 MMOL/L (24-32); TOTAL PROTEIN 6.9 G/DL (6.4-8.2); eGFR > 90 ML/MIN
--- NOTE | 2019-08-05 06:30 | NUR ---
Problems reprioritized. Patient report given, questions answered & plan of care reviewed with Latha MCMANUS.
--- NOTE | 2019-08-05 07:20 | NUR ---
Patient in room PCU 3024. I have received report from Loly MCMANUS and had the opportunity to ask questions and assume patient care.
[2019-08-05] MEDS: heparin, porcine 5000 units/ml vial SQ SCH ×2 (08:00→20:00)
[2019-08-05] MEDS: K and/or MAG REPLACEMENT MC SCH ×2 (08:00→20:00)
[2019-08-05] MEDS: budesonide 0.5mg/2ml UD nebule IH SCH ×2 (08:00→20:32)
[2019-08-05] MEDS: azithromycin 250mg tablet PO SCH (08:40)
[2019-08-05] MEDS: citalopram 20mg tablet PO SCH (08:40)
[2019-08-05] MEDS: CefTRIAXone/D5W-Rocephin 1gm 50 ML IV SCH (08:41)
[2019-08-05] MEDS: QUEtiapine 25mg tablet PO SCH (08:41)
[2019-08-05] MEDS: furosemide 40mg tablet PO SCH (08:41)
--- NOTE | 2019-08-05 10:33 | NUR ---
MD notified and in agreement with holding heparin r/t low PLT count. Requested to stopped IVF, MD in agreement.
--- NOTE | 2019-08-05 18:13 | NUR ---
Problems reprioritized. Patient report given, questions answered & plan of care reviewed with Nyla MCMANUS.
--- NOTE | 2019-08-05 18:13 | NUR ---
Patient in room PCU 3024. I have received report from Latha MCMANUS and had the opportunity to ask questions and assume patient care.
[2019-08-05] MEDS: lactobacillus rhamnosus 10,000 MMU CELLS/CAPSULE PO SCH (20:23)
[2019-08-05] MEDS: furosemide 40mg/4ml inj IV SCH (20:23)
[2019-08-05] MEDS: zolpidem 5mg tablet PO SCH (21:40)
[2019-08-06] MEDS: methylPREDNISolone sod succ 125mg/2ml vial IV SCH ×4 (01:25→20:51)
--- NOTE | 2019-08-06 02:00 | NUR ---
Patient refused 0200 vital signs.
[2019-08-06] MEDS: ipratropium/albuterol 3ml nebule NEB SCH ×7 (03:00→23:41)
[2019-08-06 05:48] LABS: BASOPHILS % (AUTO) 0.2 % (0-1); EOSINOPHILS % (AUTO) 0 % (0-6); HEMATOCRIT 40.1 % (42.0-52.0); LYMPHOCYTES # (AUTO) 0.4 X10'3 (1.1-4.8); LYMPHOCYTES % (AUTO) 6.4 % (21-51); MEAN CORPUSCULAR HGB CONC 32.5 g/dL (33.0-36.5); MEAN CORPUSCULAR VOLUME 98.4 FL (78-98); MEAN PLATELET VOLUME 10.2 FL (7.4-10.4); MONOCYTES # (AUTO) 0.2 X10'3 (0-0.9); MONOCYTES % (AUTO) 3.2 % (2-12); NEUTROPHILS # (AUTO) 5.5 X10'3 (1.8-7.7); NEUTROPHILS % (AUTO) 90.2 % (42-75); PLATELET COUNT 80 X10'3 (140-440); RED BLOOD COUNT 4.07 X10'6 (4.70-6.10); RED CELL DISTRIBUTION WIDTH 15.2 % (11.5-14.5); WHITE BLOOD COUNT 6.1 X10'3 (4.5-11.0)
[2019-08-06 06:02] LABS: ALANINE AMINOTRANSFERASE 29 U/L (12-78); ALBUMIN 3.1 G/DL (3.4-5.0); ALBUMIN/GLOBULIN RATIO 0.8 (1.1-1.5); ALKALINE PHOSPHATASE 84 IU/L (46-116); ANION GAP 4 (8-16); ASPARTATE AMINO TRANSFERASE 32 U/L (10-37); BILIRUBIN,TOTAL 1.1 MG/DL (0.1-1.0); BLOOD UREA NITROGEN 26 MG/DL (7-18); BUN/CREATININE RATIO 24.8 (5.4-32.0); CALCIUM 8.7 MG/DL (8.5-10.1); CHLORIDE 99 MMOL/L (99-107); CREATININE 1.05 MG/DL (0.60-1.10); GLUCOSE 137 MG/DL (70-104); MAGNESIUM 2.1 MG/DL (1.5-2.4); PHOSPHORUS 4.8 MG/DL (2.3-4.5); POTASSIUM 3.9 MMOL/L (3.5-5.1); SODIUM 140 MMOL/L (135-145); TOTAL CARBON DIOXIDE 36.6 MMOL/L (24-32); TOTAL PROTEIN 6.9 G/DL (6.4-8.2); eGFR 68 ML/MIN
--- NOTE | 2019-08-06 06:15 | NUR ---
Problems reprioritized. Patient report given, questions answered & plan of care reviewed with Latha MCMANUS.
--- NOTE | 2019-08-06 06:45 | NUR ---
Patient in room PCU 3024. I have received report from Nyla MCMANUS and had the opportunity to ask questions and assume patient care.
[2019-08-06 07:00] VITALS: BP 129/66
[2019-08-06] MEDS: budesonide 0.5mg/2ml UD nebule IH SCH ×2 (07:06→19:30)
[2019-08-06] MEDS: lactobacillus rhamnosus 10,000 MMU CELLS/CAPSULE PO SCH ×2 (07:53→20:51)
[2019-08-06] MEDS: azithromycin 250mg tablet PO SCH (07:53)
[2019-08-06] MEDS: citalopram 20mg tablet PO SCH (07:53)
[2019-08-06] MEDS: QUEtiapine 25mg tablet PO SCH (07:54)
[2019-08-06] MEDS: heparin, porcine 5000 units/ml vial SQ SCH (08:00)
[2019-08-06] MEDS: K and/or MAG REPLACEMENT MC SCH ×2 (08:00→20:00)
[2019-08-06] MEDS: furosemide 40mg/4ml inj IV SCH ×3 (08:00→20:00)
[2019-08-06] MEDS: CefTRIAXone/D5W-Rocephin 1gm 50 ML IV SCH (08:01)
--- NOTE | 2019-08-06 10:43 | NUR ---
PAGER ID: [phone] MESSAGE: [id number] Uche VILLALOBOS, Pt. refused Lasix, Held heparin for PLT 80. Pt. on 3L via NC, requires 5L with meals. Latha MCMANUS [phone]
[2019-08-06 11:06] VITALS: BP 129/91
--- NOTE | 2019-08-06 11:18 | NUR ---
MD made aware of refusal of lasix/BUN CR level. stated, "He cannot refuse that he will not get better." Pt. acceptable lasix. BLE are still extremely edematous and elevated. stated patient will not discharge today and CM can arrange a trilogy machine at home. Pt. is at 3/L via NC but requires 4-5 Liters with eating or any movement. PLT is 80, stated she would look into it. Explained to patient the POC and he was agreeable.
--- NOTE | 2019-08-06 12:04 | NUR ---
Pt received new tele monitor and is now on #48.
[2019-08-06 15:00] VITALS: BP 123/64
[2019-08-06 18:00] VITALS: BP 90/66
--- NOTE | 2019-08-06 18:16 | NUR ---
Problems reprioritized. Patient report given, questions answered & plan of care reviewed with Nyla MCMANUS. Patient up in chair eating dinner in no apparent distress.
--- NOTE | 2019-08-06 20:30 | NUR ---
Patient refused Lasix Patient stated that he already had Lasix today and he doesn't want it again because "I don't want to have to pee all night and not get any sleep." Patient was reeducated and patient understands the need for the medication but still refuses. Will continue to monitor.
[2019-08-06] MEDS: zolpidem 5mg tablet PO SCH (20:51)
--- NOTE | 2019-08-06 22:00 | NUR ---
Patient refused 2200 Vitals signs.
[2019-08-07] MEDS: methylPREDNISolone sod succ 125mg/2ml vial IV SCH ×2 (01:16→07:48)
--- NOTE | 2019-08-07 02:00 | NUR ---
Patient refused 0200 vital sign check.
[2019-08-07] MEDS: ipratropium/albuterol 3ml nebule NEB SCH ×4 (03:39→14:24)
[2019-08-07 05:45] LABS: BASOPHILS % (AUTO) 0.1 % (0-1); EOSINOPHILS % (AUTO) 0 % (0-6); HEMATOCRIT 41.5 % (42.0-52.0); HEMOGLOBIN 13.5 g/dl (14.0-17.9); LYMPHOCYTES # (AUTO) 0.3 X10'3 (1.1-4.8); LYMPHOCYTES % (AUTO) 5.6 % (21-51); MEAN CORPUSCULAR HEMOGLOBIN 31.8 PG (27.0-31.0); MEAN CORPUSCULAR HGB CONC 32.4 g/dL (33.0-36.5); MEAN PLATELET VOLUME 10.3 FL (7.4-10.4); MONOCYTES # (AUTO) 0.3 X10'3 (0-0.9); MONOCYTES % (AUTO) 4.2 % (2-12); NEUTROPHILS # (AUTO) 5.5 X10'3 (1.8-7.7); NEUTROPHILS % (AUTO) 90.1 % (42-75); PLATELET COUNT 76 X10'3 (140-440); RED BLOOD COUNT 4.24 X10'6 (4.70-6.10); RED CELL DISTRIBUTION WIDTH 14.8 % (11.5-14.5); WHITE BLOOD COUNT 6.1 X10'3 (4.5-11.0)
[2019-08-07 05:58] LABS: ALANINE AMINOTRANSFERASE 53 U/L (12-78); ALBUMIN 3.2 G/DL (3.4-5.0); ALBUMIN/GLOBULIN RATIO 0.8 (1.1-1.5); ALKALINE PHOSPHATASE 103 IU/L (46-116); ANION GAP 5 (8-16); ASPARTATE AMINO TRANSFERASE 57 U/L (10-37); BILIRUBIN,TOTAL 1.1 MG/DL (0.1-1.0); BLOOD UREA NITROGEN 28 MG/DL (7-18); BUN/CREATININE RATIO 22.6 (5.4-32.0); CALCIUM 8.8 MG/DL (8.5-10.1); CHLORIDE 96 MMOL/L (99-107); CREATININE 1.24 MG/DL (0.60-1.10); GLUCOSE 166 MG/DL (70-104); MAGNESIUM 2.3 MG/DL (1.5-2.4); PHOSPHORUS 4.5 MG/DL (2.3-4.5); SODIUM 139 MMOL/L (135-145); TOTAL CARBON DIOXIDE 38.3 MMOL/L (24-32); TOTAL PROTEIN 7.3 G/DL (6.4-8.2); eGFR 56 ML/MIN
[2019-08-07 06:00] VITALS: BP 134/63
[2019-08-07 06:01] LABS: POTASSIUM 4.1 MMOL/L (3.5-5.1)
--- NOTE | 2019-08-07 06:26 | NUR ---
Problems reprioritized. Patient report given, questions answered & plan of care reviewed with Ana Paula MCMANUS.
--- NOTE | 2019-08-07 06:33 | NUR ---
Patient in room PCU 3024. I have received report from YONATHAN Redmond and had the opportunity to ask questions and assume patient care.
[2019-08-07] MEDS: furosemide 40mg/4ml inj IV SCH (07:47)
[2019-08-07] MEDS: lactobacillus rhamnosus 10,000 MMU CELLS/CAPSULE PO SCH (07:48)
[2019-08-07] MEDS: azithromycin 250mg tablet PO SCH (07:48)
[2019-08-07] MEDS: QUEtiapine 25mg tablet PO SCH (07:48)
[2019-08-07] MEDS: citalopram 20mg tablet PO SCH (07:49)
[2019-08-07] MEDS: budesonide 0.5mg/2ml UD nebule IH SCH (08:00)
[2019-08-07] MEDS: K and/or MAG REPLACEMENT MC SCH (08:09)
[2019-08-07] MEDS: CefTRIAXone/D5W-Rocephin 1gm 50 ML IV SCH (08:13)
[2019-08-07] MEDS ORDERED: IPRA3AMP9 NEB (10:25)
[2019-08-07] MEDS ORDERED: CEFD300C3 PO (10:26)
[2019-08-07] MEDS ORDERED: AZIT500T2 PO (10:27)
[2019-08-07 11:00] VITALS: BP 136/65
--- NOTE | 2019-08-07 11:18 | NUR ---
patient refused svn tx going home Addendum: 08/07/19 at 1119 by Lea Kim RT Amended: Links added.
--- NOTE | 2019-08-07 14:24 | NUR ---
patient going home refused Addendum: 08/07/19 at 1425 by Lea Kim RT Amended: Links added.
--- NOTE | 2019-08-07 14:30 | NUR ---
reviewed all discharge instructions,prescriptions called to [facility] in [place].confirmed trilogy delivery of bipap this afternoon with media planner,pt aware need for f/u appts ,SL dc'd from RFA site clear,optifoam drsg changed to left elbow,small 1/2" skin tear,healing,no drainage,pt dc'd via w/c with all belongings,on own o2 from home.with family
[2019-08-07] MEDS ORDERED: PRED10TA23 PO (17:13)
[2019-08-07] MEDS ORDERED: PANT40SU2 PO ×2 (17:13→17:14)
--- NOTE | 2019-08-09 10:48 | NUR ---
Case Management DC follow up: Post DC status, questions, concerns Addendum: 08/09/19 at 1049 by Marla Ca RN LMVM DC status Addendum: 08/09/19 at 1130 by Marla Ca RN Case Management DC follow up: spoke to pt spouse, Georgiana, via telephone. S/P: ARF Reports for pt: "feeling better, tired,". Denies: acute/worsening cp, SOB, resp distress, vertigo, syncope,weakness, blurry vision, N/V, RANDLE, emergent general pain, abd tenderness/distension, fever. [facility] has been to home for assessment/intake, will return next week per a schedule. Verbalizes understanding of s/s that warrant 9-11/ER visit for evaluation. Verbalizes understanding of new Rx: Zithro-tri kris, Cefdinir, Duo Neb, Protonix, prednisone and why prescribed, resumes current Rx/taking as ordered, no ase r/t polypharmacy. Acknowledges need to schedule/keep follow up appts w/ PCP/enrrique 08/16/19, Marleen/pt has contacted, Liliam/pt will call to schedule follow up as needed. Needs met, questions answered at DC, no further questions at this time.
== END 2019-08-07 14:44 | disposition home health service (06) | DRG 280 ==
LOC: ER 09:20 → ED HOLD 13:34 → UNDOADMIN 13:46 → ED HOLD 13:46 → PCU 3S 14:29
PROVIDERS: ADMIT Family Medicine; ATTEND Internal Medicine
DX: I50.23 Acute on chronic systolic (congestive) heart failure (principal); J96.20 Acute and chronic respiratory failure, unspecified whether with hypoxia or hypercapnia; I21.A1 Myocardial infarction type 2; J44.1 Chronic obstructive pulmonary disease with (acute) exacerbation; J98.11 Atelectasis; E46 Unspecified protein-calorie malnutrition; E87.2 Acidosis; I27.29 Other secondary pulmonary hypertension; I27.81 Cor pulmonale (chronic); Z66 Do not resuscitate; F32.9 Major depressive disorder, single episode, unspecified; M19.90 Unspecified osteoarthritis, unspecified site; Z79.51 Long term (current) use of inhaled steroids; Z79.899 Other long term (current) drug therapy; Z82.49 Family history of ischemic heart disease and other diseases of the circulatory system; Z82.5 Family history of asthma and other chronic lower respiratory diseases; Z87.891 Personal history of nicotine dependence; Z95.0 Presence of cardiac pacemaker; Z68.27 Body mass index [BMI] 27.0-27.9, adult; Z88.0 Allergy status to penicillin; Z88.8 Allergy status to other drugs, medicaments and biological substances
CPT/HCPCS: 36415; 36600; 71045; 80053; 80061; 81003; 82803; 83036; 83605; 83735; 83880; 84100; 84145; 84484; 85018; 85025; 85610; 85730; 87040; 87070; 87077; 87081; 87186; 87635; 93306; 94640; 94660; 94760; 96365; 97110; 97116; 97162; 97530; 99285; G0378; J0456; J0696; J1940; J2930; J7030; J7626